=== PATIENT | female | born 1975 | race Caucasian/White ===

== ENCOUNTER 2025-05-03 09:17 | Emergency (ER) | payer MEDICARE, SELFPAY ==
--- OUTSIDE RECORDS SUMMARY | 2024-05-09 11:00 | XMS_ITS ---
Author Organization [facility] Address [address] [facility] [address] [place] [id number] Care Team Providers Care Superintendent Transportation Name Role Phone Harshil Werner Unavailable [phone] Allergies No Known Allergies Results Component Value Reference Range Notes CBC Venipuncture (in house) Reviewed date:05/12/2024 02:27:22 PM Interpretation: Performing Lab: Notes/Report: wbc 6.6 3.5 - 10 lymph 28.1% 15 - 50 mid 6.7% 2 - 15 gran 65.2% 35 - 80 rbc 4.98 3.5 - 5.5 hgb 13.0 11.5 - 16.5 hct 41.3 35 - 55 mcv 82.9 75 - 100 mch 26.2 25 - 35 mchc 31.5 31 - 38 platlet 206 100 - 400 P-Vitamin B12 Reviewed date:05/13/2024 09:48:08 AM Interpretation:Normal Performing Lab: Notes/Report: CLIA: [id number] Chele Ramos MD, Livestock Brands Inspector [address] [place] [address] [place] [address] Test performed by [facility] Vitamin B12 8498 154-5452 pg/mL P-Comprehensive Metabolic Pa mirna (CMP) Reviewed date:05/13/2024 09:48:08 AM Interpretation:Potassium 7.1, Calcium 10.5 Performing Lab: Notes/Report: Test performed by [facility] [address] [place] [address] Dr[facility] [place] [address] Chele Ramos MD, Livestock Brands Inspector CLIA: [id number] Sodium 139 135-145 mmol/L Potassium 7.1 3.5-5.3 mmol/L ALERT VALUE Results were repeated and confirmed. Chloride 105 97-108 mmol/L CO2 26 22-32 mmol/L Glucose 86 65-99 mg/dL BUN 11 6-20 mg/dL Creatinine 0.66 0.50-1.00 mg/dL Calcium 10.5 8.6-10.4 mg/dL eGFR by Creatinine 109 >59 mL/min/1.73m2 Protein 7.3 6.0-8.3 g/dL Albumin 4.6 3.5-5.3 g/dL Alkaline Phosphatase 106 35-121 IU/L ALT (SGPT) 18 <5-47 IU/L AST (SGOT) 15 <5-40 IU/L Bilirubin, Total 0.3 <0.2-1.2 mg/dL A/G Ratio 1.7 1.1-2.5 P-Folate Reviewed date:05/13/2024 09:48:08 AM Interpretation:Normal Performing Lab: Notes/Report: Test performed by [facility] [address] [place] [address] , [address], [place] [address] Chele Ramos MD, Livestock Brands Inspector CLIA: [id number] Folate >20 >4.59 ng/mL P-TSH Reviewed date:05/13/2024 09:48:08 AM Interpretation:Normal Performing Lab: Notes/Report: Test performed by [facility] [address] [place] [address] , [address], [place] [address] Chele Ramos MD, Livestock Brands Inspector CLIA: [id number] TSH 3.07 0.43-5.25 mU/L REASON FOR VISIT DIZZINESS Problems Problem Type SNOMED Code ICD Code Onset Dates Problem Status W/U Status Risk Notes Problem Abnormal gait (21265367) Imbalance (R26.89) Active confirmed Vital Signs Blood pressure systolic 130 mm Hg 05/09/20 24 Blood pressure diastolic 80 mm Hg 024 Heart Rate 89 /min 05/09/2024 Height 68 in 05/09/2024 Weight 227.0 lbs 05/09/2024 BMI 34.51 kg/m2 05/09/2024 Encounters Encounter Location Date Provider Diagnosis [facility] [address] [facility] [address] [place], [place] [phone] 05/09/2024 Harshil Werner Imbalance R26 .89 Assessments Encounter Date Diagnosis (ICD Code) Assessment Notes Treatment Notes Treatment Clinical Notes Section Notes 05/09/2024 Imbalance (ICD-10 - R26.89) Plan Of Treatment Next Appt Details Follow Up: 3 Months, Reason: Progress Notes * LOS LEPEINEDOB: 8 (49 yo F)Acc No.[id number]:05/09/2024 Progress Notes Patient: KAUSHIK BAKER Provider: Harshil Werner M.D. :1975 A ge:48 Y S ex:Female Date:05/09/2024 Address:[address] [place] [address] [place], [id number] Subjective: * Chief Complaints: * 1 . DIZZINESS. * HPI: N eurology: The pt is here today with c/o dizziness when she gets up in the mornings. 48 year old female presents with c/o headache. c/o Dizziness. Denies : head injury. * ROS: C ARDIOLOGY: no C hest pain. n o S hortness of breath. ? D ERMATOLOGY: no R venice. n o H marina. G ASTROENTEROLOGY: no N ausea. n o V omiting. n o D iarrhea.? U ROLOGY: no D ifficulty urinating. n o B lood in urine. * Medical History: M edical History Verified. * Surgical History: b ilateral hip surgery 2013, tonsels . * Family History: F ather: . M other: alive. 1 sister(s) . . sister . * Social History: C URRENT TOBACCO USE: No . C affeine: yes, frequency: coffee 2 cups daily. Marital Status: Single. Alcohol: no. Recreational drug use: no, Past use:. * Medications: N one * Allergies: N .K.D.A. Objective: * Vitals: W t:227.0, Temp:98.3, BP:130/80, HR:89, Nurse:KIYA, Ht:68, BMI:34.51. * Examination: G eneral Examination: General Appearance: N AD. H EENT: Sclera and conjunctiva clear, PERRLA, fundi poorly visualized, no nystagmus. O ral cavity: n o lesions, mucosa moist and WNL, no erythema. N adonis: s upple, no lymphadenopathy, no carotid bruits. C hest: n ormal shape and expansion. H eart: R SR. L ungs: c lear to auscultation. A bdomen: obese, soft and nontender, no organomegaly or masses. N eurologic Exam:?Intact, gait normal, Rhomberg neg. S kin: n ormal, no rash. P eripheral pulses: n ormal . E xtremities: n o leg edema. Assessment: * Assessment: 1. I huang - R26.89 (Primary) Plan: * Treatment: Value Reference Range w bc 6.6 3.5 - 10 * l ymph 28.1% 15 - 50 * m id 6.7% 2 - 15 * g ran 65.2% 35 - 80 * r bc 4.98 3.5 - 5.5 * h gb 13.0 11.5 - 16.5 * h ct 41.3 35 - 55 * m cv 82.9 75 - 100 * m ch 26.2 25 - 35 * m chc 31.5 31 - 38 * p latlet 206 100 - 400 * Tana Thompson 05/09/2024 5:5 2:21 PM >Tana Thompson 05/12/2024 2:27:06 PM > scanned ?LAB: P-Vitamin B12 (Collection Date & Time - 05/12/2024 03:08 PM)?Normal* Value Reference Range V itamin B12 1046 680-5198 - pg/mL * Sofi Cortes 05/13/2024 9:47 :45 AM >See phone encounter ?LAB: P-Comprehensive Metabolic Panel (CMP) (Collection Date & Time - 05/12/2024 03:08 PM)?Potassium 7.1, Calcium 10.5* Value Reference Range A /G Ratio 1.7 1.1-2.5 - * A lbumin 4.6 3.5-5.3 - g/dL * A lkaline Phosphatase 106 35-121 - IU/L * A LT (SGPT) 18 <5-47 - IU/L * A ST (SGOT) 15 <5-40 - IU/L * B ilirubin, Total 0.3 <0.2-1.2 - mg/dL * B UN 11 6-20 - mg/dL * C alcium 10.5 H 8.6-10.4 - mg/dL * C hloride 105 97-108 - mmol/L * C O2 26 22-32 - mmol/L * C reatinine 0.66 0.50-1.00 - mg/dL * G lucose 86 65-99 - mg/dL * P otassium 7.1 HH 3.5-5.3 - mmol/L * S odium 139 135-145 - mmol/L * P rotein 7.3 6.0-8.3 - g/dL * e GFR by Creatinine 109 >59 - mL/min/1.73m2 * Sofi Cortes 05/13/2024 9:47 :45 AM >See phone encounter ?LAB: P-Folate (Collection Date & Time - 05/12/2024 03:08 PM)?Normal* Value Reference Range F olate >20 >4.59 - ng/mL * Sofi Cortes 05/13/2024 9:47 :45 AM >See phone encounter ?LAB: P-TSH (Collection Date & Time - 05/12/2024 03:08 PM)?Normal* Value Reference Range T SH 3.07 0.43-5.25 - mU/L * Sofi Cortes 05/13/2024 9:47 :45 AM >See phone encounter * Procedure Codes: G 2211 Complex e/[place], [address] CBC WITH AUTO DIFF, 90430 VENIPUNCT, ROUTINE* * Follow Up: 3 Months * Images: Billing Information: * Visit Code: 84778 Office Visit, New Pt., Level 3. * Procedure Codes: G2211 Complex e/[place]. [address] CBC WITH AUTO DIFF. 71898 VENIPUNCT, ROUTINE*. * Electronic signature of Harshil Werner MD on 05/03/2025 at 09:43 AM EST Sign off status: Pending * Provider: Harshil Werner M.D. Date: 07/10/2023 Generated for Printi ng/Faxing/eTransmitting on: 07/03/2024 09:43 AM EST History and Physical Notes * HPI (History of Present Illness) Category Sub-Category Detail Notes Category Not es Neurology headache Dizziness head injury Examination Category Sub-Category Detail Notes Category Not es General Examination HEENT: Sclera and c onjunctiva clear, PERRLA, fundi poorly visualized, no nystagmus Heart: RSR Lungs: clear to auscultatio n Abdomen: obese, soft and nont willi, no organomegaly or masses Extremities: no leg edema General Appearance: NAD Skin: normal, no rash Neurologic Exam: Intact, gait normal, Rhomberg neg Neck: supple, no lymphaden opathy, no carotid bruits Oral cavity: no lesions, mucosa m oist and WNL, no erythema Peripheral pulses: normal Chest: normal shape and exp ansion
--- OUTSIDE RECORDS SUMMARY | 2024-05-16 05:45 | XMS_ITS ---
Author Organization Do Address [address] [facility] [address] [place] [phone] Care Team Providers Care Flamer After Lasting Name Role Phone Harshil Werner Unavailable [phone] Results Component Value Reference Range Notes P-Basic Metabolic Panel (BMP ) Reviewed date:05/24/2024 02:18:29 PM Interpretation:Normal Performing Lab: Notes/Report: CLIA: [id number] Chele Ramos MD, Environmental Services Associate [address] [place] [address] , [place] [address] Test performed by [facility] Sodium 142 135-145 mmol/L Potassium 4.3 3.5-5.3 mmol/L Chloride 107 97-108 mmol/L CO2 26 22-32 mmol/L Glucose 80 65-99 mg/dL BUN 8 6-20 mg/dL Creatinine 0.70 0.50-1.00 mg/dL Calcium 9.9 8.6-10.4 mg/dL eGFR by Creatinine 107 >59 mL/min/1.73m2 REASON FOR VISIT blood work Encounters Encounter Location Date Provider Diagnosis Do [facility] [address] [place] [id number] 05/16/2024 Harshil Werner Hyperkalemia E87.5 Assessments Encounter Date Diagnosis (ICD Code) Assessment Notes Treatment Notes Treatment Clinical Notes Section Notes 05/16/2024 Hyperkalemia (ICD-10 - E87.5) Plan Of Treatment No Information Progress Notes * VERONICA LEPEOB: 8 (49 yo F)Acc No.[id number]:05/16/2024 Patient: KAUSHIK BAKER Provider: Harshil Werner M.D. :1975 A ge:48 Y S ex:Female Date:05/16/2024 Address:[address] [place] [address] [id number] Subjective: * Chief Complaints: * 1 . Blood work. * Medical History: * Medications: N one Objective: * Vitals: Assessment: * Assessment: 1. H yperkalemia - E87.5 (Primary) Plan: * Treatment: Value Reference Range B UN 8 6-20 - mg/dL * C alcium 9.9 8.6-10.4 - mg/dL * C hloride 107 97-108 - mmol/L * C O2 26 22-32 - mmol/L * C reatinine 0.70 0.50-1.00 - mg/dL * G lucose 80 65-99 - mg/dL * P otassium 4.3 3.5-5.3 - mmol/L * S odium 142 135-145 - mmol/L * e GFR by Creatinine 107 >59 - mL/min/1.73m2 * Marina Nash 05/19/2024 11:2 9:31 AM > Tried calling, wrong Marina Moore 05/24/2024 1:43:09 PM > tried calling, wrong numberMarina Nash 05/24/2024 2:16:09 PM > Pt informed by letter * Images: Billing Information: * Visit Code: * Procedure Codes: * Electronic signature of Harshil Werner MD on 05/03/2025 at 09:43 AM EST Sign off status: Pending * Provider: Harshil Werner M.D. Date: 07/17/2023 Generated for Sarah saba/Dawna/eTransmitting on: 07/03/2024 09:43 AM EST
--- OUTSIDE RECORDS SUMMARY | 2024-08-08 08:15 | XMS_ITS ---
Author Organization Do Address [address] [facility] [address] [place] [phone] Care Team Providers Care Auditor In Charge Name Role Phone Harshil Werner Unavailable [phone] Allergies No Known Allergies REASON FOR VISIT 3 mo ck up Problems Problem Type SNOMED Code ICD Code Onset Dates Problem Status W/U Status Risk Notes Problem Hyperlipidaemia (95484926) Hyperlipidemia, unspecified hyperlipidemia type (E78.5) Active confirmed Vital Signs Blood pressure systolic 130 mm Hg 08/09/19 25 Blood pressure diastolic 90 mm Hg 025 Heart Rate 75 /min 08/08/2024 Height 68 in 08/08/2024 Weight 310.4 lbs 08/08/2024 BMI 47.19 kg/m2 08/08/2024 Encounters Encounter Location Date Provider Diagnosis Do [address] [facility] [address] [place] [id number] 08/08/2024 Harshil Werner Imbalance R26.89 and Hyperlipidemia, unspecified hyperlipidemia type E78.5 Assessments Encounter Date Diagnosis (ICD Code) Assessment Notes Treatment Notes Treatment Clinical Notes Section Notes 08/08/2024 Imbalance (ICD-10 - R26.89) WILL COME IN FOR FASTING LIPIDS 08/08/2024 Hyperlipidemia, unspecified hyperlipidemia type (ICD-10 - E78.5) Plan Of Treatment Treatment Notes Assessment Notes Imbalance WILL COME IN FOR FAS TING LIPIDS Next Appt Details Follow Up: prn, Reason: Progress Notes * VERONICA LEPEOB: 8 (49 yo F)Acc No.[id number]:08/08/2024 Progress Notes Patient: KAUSHIK BAKER Provider: Harshil Werner M.D. :1975 A ge:49 Y S ex:Female Date:08/08/2024 Address:[address] [place] [address] [id number] Subjective: * Chief Complaints: * 1 . 3 mo ck up. * HPI: N eurology: The pt is here for a follow up on dizziness and Imbalance. Pt's mom states the pt saw the eye doctor and got new glasses, BIFOCALED. She is no longer having the dizziness or imbalance. * ROS: C ARDIOLOGY: no C hest [...] Allergies: N .K.D.A. Objective: * Vitals: W t:310.4, Temp:97.7, BP:130/90, HR:75, Nurse:KIYA, Ht: 68, Repeat BP:114/88, BMI:47.19. * Examination: G eneral Examination: General Appearance: N AD. H EENT: S clera and conjunctiva clear, PERRLA, wearing new glasses. O ral cavity: n o lesions, mucosa moist and WNL, no erythema. N adonis: s upple, no lymphadenopathy, no carotid bruits. C hest: n ormal shape and expansion. H eart: R SR. L ungs: c lear to auscultation. A bdomen:? obese, soft and nontender, no organomegaly or masses. N eurologic Exam: I ntact, gait normal, Rhomberg neg. S kin: n ormal, no rash. P eripheral pulses: n ormal . E xtremities: n o leg edema. Assessment: * Assessment: 1. I mbalance - R26.89 (Primary) 2 . H yperlipidemia, unspecified hyperlipidemia type - E78.5 Plan: * Treatment: * Procedure Codes: G 2211 Complex e/m visit add on, 3074F SYST BP LT 130 MM HG, 3079F DIAST BP 80-89 MM HG * Follow Up: p rn * Images: Billing Information: * Visit Code: 33455 Office Visit, Est Pt., Level 3. * Procedure Codes: G2211 Complex e/m visit add on. 3074F SYST BP LT 130 MM HG. 3079F DIAST BP 80-89 MM HG. * Electronic signature of Harshil Werner MD on 05/03/2025 at 09:44 AM EST Sign off status: Pending * Provider: Harshil Werner M.D. Date: 0 08/08/2024 Generated for Printi ng/Melidag/eTransmitting on: 07/03/2024 09:44 AM EST History and Physical Notes * Examination Category Sub-Category Detail Notes Category Not es General Examination HEENT: Sclera and c onjunctiva clear, PERRLA, wearing new glasses Heart: RSR Lungs: clear to auscultatio n [...]
--- OUTSIDE RECORDS SUMMARY | 2024-08-09 03:15 | XMS_ITS ---
Author Organization [facility] Address [address] [facility] [address] [facility] [address] [place] [phone] Care Team Providers Care Family Practice Nurse Practitioner Name Role Phone Harshil Werner Unavailable [phone] Results Component Value Reference Range Notes P-Lipid Panel Reviewed date:08/11/2024 02:15:53 PM Interpretation:Normal Performing Lab: Notes/Report: Test performed by [facility] , [address], [place] [address] Chele Ramos MD, Tire Fixer CLIA: [id number] Cholesterol 168 <200 mg/dL Triglycerides 59 <150 mg/dL HDL Cholesterol 44 >39 mg/dL Cholesterol / HDL Ratio 3.82 0.00-4.44 Ratio Non-HDL Cholesterol 124 <130 mg/dL LDL Cholesterol (Calculation) 112 <130 mg/dL LDL Cholesterol Levels* Less than 100 mg/dL Optimal 100 to 129 mg/dL Near Optimal/ Above Optimal 130 to 159 mg/dL Borderline High 160 to 189 mg/dL High 190 mg/dL and above Very High * Categories as recommended by the 2004 ATPIII guidelines LDL/HDL Ratio 2.5 <3.3 Ratio LDL Cholesterol Patient History Test Date: 08/09/2024 LDL Results: 112 Units: mg/dL % Change: - REASON FOR VISIT blood work Encounters Encounter Location Date Provider Diagnosis [facility] [address] [place] [phone] 08/09/2024 Harshil Werner Hyperlipidemia, unspecified hyperlipidemia type E78.5 Assessments Encounter Date Diagnosis (ICD Code) Assessment Notes Treatment Notes Treatment Clinical Notes Section Notes 08/09/2024 Hyperlipidemia, unspecified hyperlipidemia type (ICD-10 - E78.5) Plan Of Treatment No Information Progress Notes * LOS LEPEINEDOB: 8 (49 yo F)Acc No.[id number]:08/09/2024 Patient: KAUSHIK BAKER Provider: Harshil Werner M.D. :1975 A ge:49 Y S ex:Female Date:08/09/2024 Address:[address] [place] [address] [id number] Subjective: * Chief Complaints: * 1 . Blood work. * Medical History: * Medications: N one Objective: * Vitals: Assessment: * Assessment: 1. H yperlipidemia, unspecified hyperlipidemia type - E78.5 Plan: * Treatment: Value Reference Range C holesterol / HDL Ratio 3.82 0.00-4.44 - Ratio * C holesterol 168 <200 - mg/dL * H DL Cholesterol 44 >39 - mg/dL * L DL Cholesterol (Calculation) 112 <130 - mg/d L * L DL/HDL Ratio 2.5 <3.3 - Ratio * N on-HDL Cholesterol 124 <130 - mg/dL * T riglycerides 59 <150 - mg/dL * Tana Thompson 08/11/2024 2:15 :34 PM > 1+ Patient informed of normal results. * Images: Billing Information: * Visit Code: * Procedure Codes: * Electronic signature of Harshil Werner MD on 05/03/2025 at 09:43 AM EST Sign off status: Pending * Provider: Harshil Werner M.D. Date: 0 08/09/2024 Generated for Sarah saba/Dawna/Tessa on: 07/03/2024 09:43 AM EST
[2025-05-03] VITALS (8 sets, daily range): BP systolic 81–257; BP diastolic 22–154; RESP 20; O2SAT 51–93; BMI 57.3
[2025-05-03] MEDS: EPINEPHrine 0.1 MG/ML 10ML SYRINGE (CRASH CART) 1 MG IV ×10 (09:15→09:40)
--- NOTE | 2025-05-03 09:17 | PC.NURSE ---
Pulse check, patient PEA on monitor, no pulse found. CPR resumed.
--- NOTE | 2025-05-03 09:19 | PC.NURSE ---
Pulse check, patient PEA on monitor, no pulse found. CPR resumed.
--- NOTE | 2025-05-03 09:21 | PC.NURSE ---
Pulse check, patient PEA on monitor, no pulse found. CPR resumed.
--- NOTE | 2025-05-03 09:23 | PC.NURSE ---
Pulse check, patient PEA on monitor, no pulse found. CPR resumed.
--- NOTE | 2025-05-03 09:23 | PC.NURSE ---
Pharmacy called to have more epi and saline brought to the ER
[2025-05-03] MEDS: SODIUM BICARB 8.4% 50ML SYRINGE (CRASH CART) 50 MEQ IV ×2 (09:26→09:36)
--- NOTE | 2025-05-03 09:26 | PC.NURSE ---
Pulse check, patient PEA on monitor, no pulse found. CPR resumed.
[2025-05-03 09:28] LABS: VBG HCO3 12.2 mmol/L (23-30); VBG PO2 42.2 mmol/L (28-40)
--- NOTE | 2025-05-03 09:28 | PC.NURSE ---
Pulse check, patient PEA on monitor, no pulse found. CPR resumed.
--- NOTE | 2025-05-03 09:30 | PC.NURSE ---
Pulse check, patient PEA on monitor, no pulse found. CPR resumed.
--- NOTE | 2025-05-03 09:33 | PC.NURSE ---
Pulse check, patient PEA on monitor, no pulse found. CPR resumed.
[2025-05-03] MEDS: CALCIUM CHLORIDE 1GM/10ML SYRINGE (CRASH CART) 1 GM IVP (09:35)
--- NOTE | 2025-05-03 09:36 | PC.NURSE ---
Pulse check, patient PEA on monitor, no pulse found. CPR resumed.
--- NOTE | 2025-05-03 09:38 | ECG_ITS ---
APPROVED REPORT Exam: Resting ECG HR:48 bpm ECG Measurements Heart Rate 48 AXES QRSd 158 QRS 91 QT 358 T -30 QTc 326 Conclusion UNCERTAIN REGULAR RHYTHM BORDERLINE RIGHT AXIS DEVIATION [QRS AXIS > 90] INTRAVENTRICULAR CONDUCTION DELAY [130+ ms QRS DURATION] ST DEPRESSION, CONSIDER SUBENDOCARDIAL INJURY [0.1+ mV ST DEPRESSION] TYPE 3 BRUGADA PATTERN (NON-DIAGNOSTIC) [COVED/SADDLEBACK ST ELEVATION > 0.1mV IN 2 OF V1-3] ABNORMAL ECG ST elevation in septal and inferior leads Electronically signed by : FRANC BUTLER, 05/04/2025 14:07:36
--- NOTE | 2025-05-03 09:38 | PC.NURSE ---
Pulse check, patient PEA on monitor, no pulse found. CPR resumed.
--- NOTE | 2025-05-03 09:41 | PC.NURSE ---
Pulse check, patient PEA on monitor, no pulse found. CPR resumed.
--- NOTE | 2025-05-03 09:43 | PC.NURSE ---
Pulse check, patient asystole on monitor, no pulse found. CPR resumed.
--- OUTSIDE RECORDS SUMMARY | 2025-05-03 09:44 | XMS_ITS ---
Author Organization Unknown ENCOUNTERS Encounter Performer Location Date Diagnosis Diagnosis Status Emergency [facility] [address] [place] [phone] Pre Admit [facility] [address] [place] [phone] *Note: Encounters from your own facility or health system may be excluded. Allergies, Adverse Reactions, Alerts Allergen Type Severity Identification Date Medications Name Date Quantity Days Supplied GPI Number
--- OUTSIDE RECORDS SUMMARY | 2025-05-03 09:44 | XMS_ITS | Patient Health Record ---
Author Organization [facility] Address [address] [facility] [address] [place] [phone] Care Team Providers Care Social Services Designee Name Role Phone Harshil Werner Unavailable [phone] Allergies No Known Allergies Results Component Value [...] Interpretation:Normal Performing Lab: Notes/Report: Test performed by [facility] [address] [place] [address] , [address], [place] [address] Chele Ramos MD, Cad Engineer CLIA: [id number] Vitamin B12 4087 037-0980 pg/mL P-Comprehensive Metabolic Pa mirna (CMP) Reviewed date:05/13/2024 09:48:08 AM Interpretation:Potassium 7.1, Calcium 10.5 Performing Lab: Notes/Report: Test performed by [facility] [address] [place] [address] [place] [address] Chele Ramos MD, Cad Engineer CLIA: [id number] Sodium 139 135-145 mmol/L Potassium 7.1 3.5-5.3 [...] Interpretation:Normal Performing Lab: Notes/Report: Test performed by [facility] [address] [place] [address] , [address], [place] [address] Chele Ramos MD, Cad Engineer CLIA: [id number] Folate >20 >4.59 ng/mL P-TSH Reviewed date:05/13/2024 09:48:08 AM Interpretation:Normal Performing Lab: Notes/Report: Test performed by [facility] [address] [place] [address] , [address], [place] [address] Chele Ramos MD, Cad Engineer CLIA: [id number] TSH 3.07 0.43-5.25 mU/L P-Basic Metabolic Panel (BMP ) Reviewed date:05/24/2024 02:18:29 PM Interpretation:Normal Performing Lab: Notes/Report: Test performed by [facility] [address] [place] [address] , [address], [place] [address] Chele Ramos MD, Cad Engineer CLIA: [id number] Sodium 142 135-145 mmol/L Potassium 4.3 3.5-5.3 mmol/L Chloride 107 97-108 mmol/L CO2 26 22-32 mmol/L Glucose 80 65-99 mg/dL BUN 8 6-20 mg/dL Creatinine 0.70 0.50-1.00 mg/dL Calcium 9.9 8.6-10.4 mg/dL eGFR by Creatinine 107 >59 mL/min/1.73m2 P-Lipid Panel Reviewed date:08/11/2024 02:15:53 PM Interpretation:Normal Performing Lab: Notes/Report: Test performed by [facility], [address] , [address], [place] [address] Chele Ramos MD, Cad Engineer CLSHAAN: [id number] Cholesterol 168 <200 mg/dL Triglycerides 59 <150 [...] Results: 112 Units: mg/dL % Change: - CORRINE Reviewed date:05/09/2024 11:32:34 AM Interpretation: Performing Lab: Notes/Report: Reason For Referral No Information Problems Problem Type SNOMED Code ICD Code Onset Dates Problem Status W/U Status Risk Notes Problem Hyperlipidaemia (29986805) Hyperlipidemia, unspecified hyperlipidemia type (E78.5) Active confirmed Problem Abnormal gait (90522020) Imbalance (R26.89) Active confirmed Vital Signs Heart Rate 75 /min 08/08/2024 Blood pressure diastolic 90 mm Hg 08/08/2024 Height 68 in 08/08/2024 Blood pressure systolic 130 mm Hg 08/08/2024 Weight 310.4 lbs 08/08/2024 BMI 47.19 kg/m2 08/08/2024 Encounters Encounter Location Date Provider Diagnosis [facility] [address] [facility] [address] [place], [place] [phone] 05/09/2024 Harshil Werner Imbalance R26.89 [facility] [address] [facility] 36 [facility] [address] [place], [place] [phone] 05/16/2024 Harshil Werner Hyperkalemia E87.5 [facility] [address] [facility] [address] [place], [place] [phone] 08/08/2024 Harshil Werner Imbalance R26.89 and Hyperlipidemia, unspecified hyperlipidemia type E78.5 [facility] [address] [facility] [address] [place], [place] [phone] 08/09/2024 Harshil Werner Hyperlipidemia, unspecified hyperlipidemia type E78.5 [facility] [address] [facility] [address] [place], [place] [phone] 05/13/2024 Harshil Werner [facility] [address] [facility] 36 [facility] [address] [place] [phone] 05/13/2024 Harshil Werner [facility] [address] [facility] 36 [facility] [address] [place], [place] [phone] 06/28/2024 Harshil Werner [facility] [address] [facility] 36 [facility] [address] [place], [place] [phone] 02/14/2025 Harshil Werner Assessments Encounter Date Diagnosis (ICD Code) Assessment Notes Treatment Notes Treatment Clinical Notes Section Notes 05/09/2024 Imbalance (ICD-10 - R26.89) 05/16/2024 Hyperkalemia (ICD-10 - E87.5) 08/08/2024 Hyperlipidemia, unspecified hyperlipidemia type (ICD-10 - E78.5) 08/08/2024 Imbalance (ICD-10 - R26.89) WILL COME IN FOR FASTING LIPIDS 08/09/2024 Hyperlipidemia, unspecified hyperlipidemia type (ICD-10 - E78.5) Plan Of Treatment No Information Insurance Providers Payer Name Payer Address Payer Phone Subscriber Number Group Number Insured Name Patient Relationship to Insured Coverage Start Date Coverage End Date MEDICARE PART B [address] [address] [place] [address] [phone] [id number] KAUSHIK LEPE Self - patient is the insured Medical (General) History Surgical History Surgery Date(Month/Year) bilateral hip surgery 2013 [facility]
--- OUTSIDE RECORDS SUMMARY | 2025-05-03 09:44 | XMS_ITS ---
Author Organization Unknown Vital Signs BpStanding BpSitting BpSupine Date Temperature HeartRate Weight Hei ght Spo2 Respiration Bmi HeadCircumference FieldCount TimeRecorded NeckCircumferen ce WaistCircumference Pulse Custom 130/90 08/08 00:00 :00 97.7 75 310,6.4 0 5,8 47.1 9 6 04/22/2025 13:15:00 130/80 05/09 00:00 :00 98.3 89 227,0 5,8 34.5 1 6 04/22/2025 16:00:00
--- NOTE | 2025-05-03 09:47 | PC.NURSE ---
Pulse check, patient aystole on monitor, no pulse found. Patient pronounced by
[2025-05-03 09:50] LABS: Lactate Venous 12.3 mmol/L (0.4-2.0); VBG PCO2 59.7 mmol/L (35-51); VBG PH 6.93 mmol/L (7.31-7.41)
--- NOTE | 2025-05-03 09:52 | HMH.EDGENADL ---
Discharge Plan Disposition Patient Disposition: Date/Time: 05/03/25 09:47 Clinical Impressions Clinical Impression: Acidosis, Acute hypoxic respiratory failure Discharge ED Provider: Angela Li Adult HPI General Chief complaint: Cardiac Arrest/CPR Stated complaint: Unresponsive Time Seen by Provider: 05/03/25 09:52 History of Present Illness HPI narrative: Patient is 49-year-old female who presented to the emergency department as a cardiac arrest. Per EMS, patient lives at home with her mother. EMS states that the mother saw her at breakfast and patient was complaining of abdominal pain and vomiting. They state that she was seen around 8:00, EMS call was placed around 830 and they arrived and patient did not have a pulse around 845. EMS started interventions at 855 and patient was given 3 rounds of epinephrine prior to arrival and compressions were done and route. Patient has remained asystole. Patient's blood sugar was in the 200s. No other medications were given and route. On arrival, patient was in cardiac arrest, CPR was in progress. LMA was in place. No other history was obtained at this time. Related Data Allergies Allergy/AdvReac Type Severity Reaction Status Date / Time Unable to Assess Allergy Verified 05/03/25 10:21 [facility] Disclaimer: The information contained in this section may have been updated after the patient was seen, as this information can be updated by other users. Social History Smoking Status: Unknown if ever smoked alcohol intake: never current occupational status: other Travel in the last 8 weeks?: None ROS Obtained: Yes unobtainable due to endotracheal tube Physical Exam General General appearance: other (unconscious) Comment: LMA in place, unconscious Head Head exam: normocephalic Eye Eye exam: Present other (2 and minimally reactive) Respiratory Respiratory exam: Present normal lung sounds bilaterally (bilateral breath sounds present with bagging) Cardiovascular Cardiovascular exam: Present other (asystole) Abdominal Exam Abdominal exam: Present distention Neurological Exam Neurological exam: Present other (unconscious) Medical Decision Making Medical Records Medical records reviewed: Yes I reviewed the patient's medical records. Screening: Per USPSTF and CDC recommendations, given the prevalence of disease in our region, it is our hospital?s policy to screen for HIV and viral Hepatitis for all patients aged 18 and over and those with ongoing risk factors. Jerry Inquiry Pt receiving controlled substance: No Vital Signs: 05/03/25 09:15 05/03/25 09:25 05/03/25 09:30 Respiratory Rate 20 Blood Pressure Blood Pressure Mean 02 Sat by Pulse Oximetry 80 L 74 L 51 L Oxygen Delivery Method Ambu-Bag Oxygen Flow Rate (LPM) 05/03/25 09:31 05/03/25 09:33 05/03/25 09:33 Respiratory Rate Blood Pressure 81/22 L 235/86 H Blood Pressure Mean 52 90 02 Sat by Pulse Oximetry 93 L Oxygen Delivery Method Oxygen Flow Rate (LPM) 05/03/25 09:36 05/03/25 09:36 05/03/25 09:40 Respiratory Rate Blood Pressure 257/154 H Blood Pressure Mean 188 02 Sat by Pulse Oximetry 56 L 82 L Oxygen Delivery Method Oxygen Flow Rate (LPM) 05/03/25 09:41 05/03/25 10:01 Respiratory Rate Blood Pressure 157/133 H Blood Pressure Mean 140 02 Sat by Pulse Oximetry Oxygen Delivery Method Oxygen Flow Rate (LPM) 15 Lab Data Lab results reviewed: Yes I reviewed the patient's lab results. Lab Results 05/03/25 09:25: VBG pH 6.93 L, VBG pCO2 59.7 H, VBG pO2 42.2 H, VBG HCO3 12.2 L, VBG Total CO2 14.1 L, VBG O2 Saturation 49.6 L, VBG Base Excess -20.2 L, VBG Lactic Acid 12.3 H Orders (Tests/Meds): ED MEDICATIONS Discontinued Medications Generic Name Dose Route Start Last Admin Trade Name Freq PRN Reason Stop Dose Admin Calcium Chloride 1 gm 05/03/25 10:28 05/03/25 09:35 Calcium Chloride 1gm/10ml Syringe (Crash Cart) IVP 05/03/25 10:29 1 gm ONCE ONE Administration Epinephrine HCl 1 mg 05/03/25 11:08 05/03/25 09:40 Epinephrine 0.1 Mg/Ml 10ml Syringe (Crash Cart) IV 06/02/25 11:07 1 mg NEEDED PRN Administration Code Blue Med Administration Sodium Chloride 1,000 mls @ 999 mls/hr 05/03/25 11:28 05/03/25 11:31 Sod Chlor 0.9% 1000ml Bag IV 05/03/25 12:28 Infused .Q1H1M ONE Infusion Sodium Bicarbonate 50 meq 05/03/25 10:41 05/03/25 09:26 Sodium Bicarb 8.4% 50ml Syringe (Crash Cart) IV 05/03/25 10:42 50 meq ONCE ONE Administration Sodium Bicarbonate 50 meq 05/03/25 10:49 05/03/25 09:36 Sodium Bicarb 8.4% 50ml Syringe (Crash Cart) IV 05/03/25 10:50 50 meq ONCE ONE Administration ORDERS Category Date Time Status Venous Blood Gas Routine RT 05/03/25 09:25 Completed Medical Decision Narrative: Patient is a 49-year-old female with reported no medical problems who presented to the emergency department in cardiac arrest. Patient arrived from home via EMS after EMS found the patient at home without a pulse around 850 5 in the morning. Interventions were started at 855 and patient arrived to the emergency department in cardiac arrest. CPR was in progress. IO was obtained for access prior to arrival and LMA was in place. Blood sugar was obtained which was normal. On arrival, ACLS protocol was continued. Patient was transferred to the ER bed, auto pulse was initiated. Patient had bilateral breath sounds. Access was obtained and a VBG was sent. Had received 3 doses of epinephrine prior to arrival and had CPR in progress. Bedside ultrasound was performed and patient had bilateral lung sliding present therefore low concern for pneumothorax. No right ventricular enlargement to suggest PE at this time. Patient was intubated via GlideScope. Multiple doses of epinephrine were given and multiple rounds of CPR was continued. VBG was obtained which showed significant acidosis of 6.93 lactate of 12.3 with a bicarb of 12. Patient was given 1 amp of bicarb and given calcium given concern for acidosis and mild hyperkalemia. After discussion with mother who arrived in the emergency department, she stated that the patient was complaining of abdominal pain and vomiting this morning but never complained of chest pain shortness of breath does not have any cardiac history or other pulmonary history. Patient was given a second dose of bicarb and after multiple rounds of compressions and multiple doses of epinephrine, patient remained in asystole during entire ACLS. After 30 minutes in the emergency department and after discussion with mother, interventions were ceased as I did not feel there were any other reversible causes for her symptoms at this time. Time of was called at 9:47AM. Procedures Intubation Mallampati Score:: Class I Time out performed: No sedative: none Laryngoscope: Francisca ET Tube Size: 7.5 ET Tube Uncuffed: No Tube Secured Depth (cm): 20 Tube Secured Location: lips Tube Placement Confirmation: visualized tube passing through cords Patient Tolerated Procedure: well Intubation Complications: none Critical Care Critical Care Time Critical Care Time: Yes Attestation: On 05/03/25, the high probability of a clinically significant, sudden or life threatening deterioration of the following system(s) required my full and direct attention, intervention and personal management. The time I documented below is in addition to time spent performing reported procedures but includes the following listed in this critical care notation. Total Time Total Critical Care Time: 35
--- NOTE | 2025-05-03 10:15 | PC.NURSE ---
[facility] notified. Spoke with Maricarmen .
--- NOTE | 2025-05-03 10:20 | PC.NURSE ---
Spoke with Maricarmen at [facility] notified of patient being a adult education professional case and to contact them at [place] dispatch [phone].
--- NOTE | 2025-05-03 10:25 | PC.NURSE ---
Addendum entered by Radha Orellana RN 05/03/25 10:26: Placed on autopulse at 0915 Original Note: Patient placed on auto-pulse assistive CPR device
[2025-05-03] MEDS: 0.9 % SODIUM CHLORIDE 1000ML 1,000 ML 999 ML IV (11:30)
[2025-05-03 13:25] LABS: Reflex Lactic Add Lactic Reflex
== END 2025-05-03 10:54 | disposition expired ==
PROVIDERS: Emergency Provider Student in an Organized Health Care Education/Training Program; PCP Family Medicine
DX: I46.9 Cardiac arrest, cause unspecified (principal); J96.01 Acute respiratory failure with hypoxia
CPT/HCPCS: 31500; 82803; 92950; 93005; 96361; 96374; 96375; 99285; J0169; J7030